=== PATIENT | male | born 1985 | race Caucasian/White ===

== ENCOUNTER 2018-09-15 10:05 | Emergency (ER) | payer SELFPAY ==
[2018-09-15] MEDS ORDERED: DEXAMETHASONE SOD PHOS INJ 10 MG/1 ML VIAL IM ONE (10:31)
[2018-09-15] MEDS ORDERED: PENICILLIN G BENZATHINE 1.2 MILLION UNIT/2 ML DISP.SYRIN IM ONE (10:55)
--- NOTE | 2018-09-15 10:58 | ER Document Report ---
HPI - HPI Time Seen by Provider: 09/15/18 10:21 Pain Level: 4 Notes: Patient is a 33-year-old male who presents with chief complaint of fever and sore throat that started yesterday. Patient denies any other symptoms. Reports history of strep throat as a child. Patient is able to swallow without difficulty but he does have pain when swallowing. - CONSTITUTIONAL Constitutional: REPORTS: Fever, Chills - EENT EENT: REPORTS: Sore Throat - RESPIRATORY Respiratory: REPORTS: Coughing Past Medical History - General Information source: Patient - Social History Smoking Status: Current Every Day Smoker Frequency of alcohol use: None Drug Abuse: Marijuana Family History: Reviewed & Not Pertinent Patient has suicidal ideation: No Patient has homicidal ideation: No - Medical History Medical History: Negative Renal/ Medical History: Denies: Hx Peritoneal Dialysis Surgical Hx: Negative - Immunizations Immunizations up to date: Yes Vertical Provider Document - CONSTITUTIONAL Notes: PHYSICAL EXAMINATION: GENERAL: Well-appearing, well-nourished and in no acute distress. HEAD: Atraumatic, normocephalic. EYES: Pupils equal round extraocular movements intact, conjunctiva are normal. ENT: Nares patent, bilateral tonsillar swelling with erythema and exudates noted, tonsils are not touching, uvula is midline, no evidence of peritonsillar abscess. NECK: Normal range of motion LUNGS: No respiratory distress Musculoskeletal: Normal range of motion NEUROLOGICAL: Normal speech, normal gait. PSYCH: Normal mood, normal affect. SKIN: Warm, Dry, normal turgor, no rashes or lesions noted. - INFECTION CONTROL TRAVEL OUTSIDE OF THE [place] IN LAST 30 DAYS: No Course - Re-evaluation Re-evalutation: 09/15/18 10:56 Rapid strep is positive. Patient was initially tachycardic on arrival, repeat heart rate is 102. Patient will be given dose of IM penicillin G and discharged home. - Vital Signs Vital signs: Temp Pulse Resp BP Pulse Ox 99.2 F 122 H 16 138/91 H 98 09/15/18 10:07 09/15/18 10:07 09/15/18 10:07 09/15/18 10:07 09/15/18 10:07 Discharge - Discharge Clinical Impression: Strep throat Condition: Stable Disposition: HOME, SELF-CARE Additional Instructions: STREP THROAT: Your sore throat is due to the streptococcus germ (strep throat). Strep throat usually makes you feel quite ill with fever and aches, headache, swollen sore throat, and tender bumps under the angles of the jaw. Strep throat requires antibiotic treatment. Although the sore throat may go away by itself, complications such as rheumatic fever, kidney disease, or throat abscess can occur. We usually prescribe antibiotics by mouth. Be sure to take the medicine until it's gone. If you stop early, the strep may come back. If you are vomiting, are severely ill, or can't remember to take pills, we can give you an antibiotic shot. Take acetaminophen or ibuprofen for pain and fever. Sip frequent clear liquids, or use popsicles or ice chips. Anesthetic sprays or lozenges may help. Make sure the air in the room is not too dry. Avoid using decongestants or antihistamines. Call the doctor if there is no improvement in three days, or if you have difficulty breathing, increasing throat pain, high fever, rash, or frequent vomiting. Penicillins The antibiotic you have received is a member of the penicillin family. This is a very useful class of antibiotics. The particular type of antibiotic chosen for you was determined by the nature of your problem. Penicillins are absorbed best when taken on an empty stomach, and should be taken either a half hour before or two hours after a meal. Some newer medicines of the penicillin class are better taken with food -- if this is the case, the pharmacist will label the medicine to alert you. Penicillins usually have no side effects. However, allergy to penicillins is common. If you have had an allergic reaction to any drug of the penicillin family, you should never take any other penicillin. Notify your doctor at once if you develop hives, itching, swelling, faintness, or shortness of breath. Less serious side effects can include nausea or diarrhea. STEROID MEDICATION: You have been given a medicine of the cortisone/steroid class. This medication is used to control inflammation or allergy. It is usually only given for a short period of time, until the acute process subsides. There are usually no side effects from short-term use of cortisone-like medications. Some persons feel an increased sense of well-being and are not sleepy at bedtime. Long-term use of cortisone medications is best avoided, unless required for a severe condition. If your condition does not remit, or relapses after the course of corticosteroid medication, you should consult your physician. FOLLOW-UP CARE: If you have been referred to a physician for follow-up care, call the physicians office for an appointment as you were instructed or within the next two days. If you experience worsening or a significant change in your symptoms, notify the physician immediately or return to the Emergency Department at any time for re-evaluation. Forms: Return to Work
[2018-09-15 11:02] VITALS: BP 144/95
== END 2018-09-15 11:38 | disposition home or self-care (01) ==
LOC: ER 10:05
DX: J02.0 Streptococcal pharyngitis (principal); R50.9 Fever, unspecified; R05 Cough; F17.200 Nicotine dependence, unspecified, uncomplicated
CPT/HCPCS: 99283; 96372; 87880; J0561; J1100

== ENCOUNTER 2019-08-26 20:31 | Emergency (ER) | payer SELFPAY ==
[2019-08-26 20:40] VITALS: BP 154/88
--- NOTE | 2019-08-26 21:20 | ER Document Report ---
ED Medical Screen (RME) - General Chief Complaint: Penile Problem Stated Complaint: ABSCESS Time Seen by Provider: 08/26/19 21:17 TRAVEL OUTSIDE OF THE [place] IN LAST 30 DAYS: No - HPI Notes: 08/26/19 21:19 Patient is a 34-year-old male no significant past medical history would like to be evaluated for penile lesion that has been there for the past couple days and growing. He did have unprotected sexual intercourse recently. Denies drug allergies. No fever. He does have any pain associated. I have treated and performed a rapid initial assessment of this patient. A comprehensive ED assessment and evaluation of the patient, analysis of test results and completion of medical decision making process will be conducted by additional ED providers. PHYSICAL EXAMINATION: GENERAL: Well-appearing, well-nourished and in no acute distress. A&Ox4. Answers questions appropriately. - Related Data Allergies/Adverse Reactions: No Known Allergies Allergy (Unverified 09/15/18 10:06) Past Medical History Renal/ Medical History: Denies: Hx Peritoneal Dialysis - Immunizations Immunizations up to date: Yes Physical Exam - Vital signs Vitals: Temp Pulse Resp BP Pulse Ox 98.0 F 98 20 154/88 H 99 08/26/19 20:39 08/26/19 20:39 08/26/19 20:39 08/26/19 20:39 08/26/19 20:39 Course - Vital Signs Vital signs: Temp Pulse Resp BP Pulse Ox 98.0 F 98 20 154/88 H 99 08/26/19 20:39 08/26/19 20:39 08/26/19 20:39 08/26/19 20:39 08/26/19 20:39
--- NOTE | 2019-08-26 23:11 | ER Document Report ---
ED General - General Chief Complaint: Penile Problem Stated Complaint: ABSCESS Time Seen by Provider: 08/26/19 21:17 TRAVEL OUTSIDE OF THE [place] IN LAST 30 DAYS: No - HPI Notes: 34-year-old male resenting with a chief complaint of sores on the shaft of the penis which have developed since intercourse 3 days ago. Patient says he has a single partner and that the best of his knowledge his partner does not currently have any type of STD. He denies any prior history of STDs. Lesions are slowly enlarging and some of these seem like "little pimples" and 2 of these have now ulcerated. No urethral discharge. No dysuria. No fever or chills. No systemic symptoms. He denies any known prior history of genital herpes or fever blisters. 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 Good general health. No regular medications. No known allergies. No history of major surgery. Cigarette smoker. Social alcohol use. Occasional use of marijuana. He denies any other drug abuse. - Related Data Allergies/Adverse Reactions: No Known Allergies Allergy (Unverified 09/15/18 10:06) Past Medical History - General Information source: Patient - Social History Smoking Status: Current Every Day Smoker Family History: Reviewed & Not Pertinent Patient has suicidal ideation: No Patient has homicidal ideation: No Renal/ Medical History: Denies: Hx Peritoneal Dialysis - Immunizations Immunizations up to date: Yes Review of Systems - Review of Systems Notes: Constitutional: Negative for fever. HENT: Negative for sore throat. Eyes: Negative for visual changes. Cardiovascular: Negative for chest pain. Respiratory: Negative for shortness of breath. Gastrointestinal: Negative for abdominal pain, vomiting or diarrhea. Genitourinary: As per HPI. Musculoskeletal: Negative for back pain. Skin: Negative for rash. Neurological: Negative for headaches, weakness or numbness. 10 point ROS negative except as marked above and in HPI. Physical Exam - Vital signs Vitals: Temp Pulse Resp BP Pulse Ox 98.0 F 98 20 154/88 H 99 08/26/19 20:39 08/26/19 20:39 08/26/19 20:39 08/26/19 20:39 08/26/19 20:39 - Notes Notes: GENERAL: Well-developed well-nourished appearing in no acute distress. SKIN: Good turgor no rashes. HEAD: Normocephalic atraumatic. EYES: PERRLA. EOMI. Conjunctivae and sclerae clear. EARS: CANALS AND TMS CLEAR. NOSE: CLEAR. MOUTH: Moist mucosa. Good dentition. No stridor or edema. No drooling. NECK: Supple. No masses or thyromegaly. No adenopathy. Carotids 2+ without bruits. No JVD. BACK: Symmetrical without tenderness. CHEST: Respirations unlabored. Breath sounds clear and symmetrical. HEART: Regular rhythm. No murmur gallop or rub. ABDOMEN: Soft nontender without masses, organomegaly or rebound. Bowel sounds normally active. No bruits. GENITALIA: Circumcised male with several small blisters on the distal portion of the ventral surface of the shaft of the penis adjacent to the frenulum. 2 small shallow ulcerations which are slightly tender are present in the same area each measuring about 2 mm diameter no urethral discharge.. EXTREMITIES: No edema. No calf tenderness. Cap refill less than 1.5 seconds. Dorsalis pedis and posterior tibial pulses 3+ and symmetrical. NEUROLOGICAL: GCS 15. Alert and oriented x3. Normal gait. Fluent speech. Cranial nerves II through XII intact. Sensorimotor and cerebellar normal. Normal tone. PSYCHIATRIC: Appropriate affect. Course - Re-evaluation Re-evalutation: 08/26/19 23:10 Patient is advised that this is presumptively primary herpes simplex. We have submitted viral cultures which are pending. Also collected specimens for GC chlamydia by DNA probe. Recommend follow-up with health department. Advised to abstain from intercourse until current testing is reported. We will treat him as an outpatient with oral acyclovir. Recommend screening of partner and recommend also that this man follow-up with health department for serologic testing for HIV and syphilis. - Vital Signs Vital signs: Temp Pulse Resp BP Pulse Ox 98.0 F 98 20 154/88 H 99 08/26/19 20:39 08/26/19 20:39 08/26/19 20:39 08/26/19 20:39 08/26/19 20:39 Discharge - Discharge Clinical Impression: Primary genital herpes simplex infection Condition: Stable Disposition: HOME, SELF-CARE Instructions: Acyclovir ([facility]), Genital Herpes ([facility]) Additional Instructions: No intercourse until further evaluation by health department or your primary care physician. Health department will perform syphilis serology and HIV testing at no charge and the screens are recommended for you. Take prescribed medication as directed. You may supplementally take Tylenol as needed for discomfort. Clean the area daily with warm water and mild soap. Prescriptions: Acyclovir [Acyclovir 400 mg Tablet] 400 mg PO TID 10 Days #30 tablet Forms: Elevated Blood Pressure Referrals: [facility] [Provider Group] - Follow up as needed
[2019-08-26 23:39] LABS: CHLAM PCR DETECTED (NOT DETECT)
== END 2019-08-26 23:43 | disposition home or self-care (01) ==
LOC: ER 20:31
DX: A60.01 Herpesviral infection of penis (principal); F17.200 Nicotine dependence, unspecified, uncomplicated
CPT/HCPCS: 87252; 87491; 87591; 99283

== ENCOUNTER 2019-08-27 19:54 | Emergency (ER) | payer SELFPAY ==
[2019-08-27 19:59] VITALS: BP 147/92
== END 2019-08-27 22:33 | disposition left against medical advice (07) ==
LOC: ER 19:54
DX: Z53.21 Procedure and treatment not carried out due to patient leaving prior to being seen by health care provider (principal)